=== PATIENT | female | born 1950 | race Caucasian/White ===

== ENCOUNTER 2017-10-10 18:48 | Emergency (ER) | payer OTHER, BC ==
[~2017-10-10] VITALS: Ht 162.6 cm; Wt 54.0 kg
[2017-10-10 19:01] VITALS: Ht 162.6 cm; Wt 54.0 kg
[2017-10-10 21:20] VITALS: BP 130/82
== END 2017-10-10 21:20 | disposition home or self-care (01) ==
LOC: ED 18:48
DX: S52.602A Unspecified fracture of lower end of left ulna, initial encounter for closed fracture (principal); S09.90XA Unspecified injury of head, initial encounter; V89.2XXA Person injured in unspecified motor-vehicle accident, traffic, initial encounter; Y93.89 Activity, other specified; Y92.89 Other specified places as the place of occurrence of the external cause; Y99.8 Other external cause status